=== PATIENT | male | born 1955 | race Caucasian/White ===

== ENCOUNTER → 2024-01-28 | Outpatient (CLI) | payer MEDICARE, BC, SELFPAY ==
[2024-01-28 11:19] LABS: Anion Gap 4 (5-15); BUN 26 mg/dL (7-18); BUN/Creat Ratio 23.9 RATIO (10-20); Calcium,Total 9.7 mg/dL (8.5-10.1); Chloride 108 mmol/L (98-107); Creatinine, Serum 1.09 mg/dL (0.70-1.30); EST Glomerular Filtration Rate 72 mL/min (>60); Est Glom Filt Rate - Afr Amer 87 mL/min (>60); Glucose 101 mg/dL (74-106); Potassium 4.1 mmol/L (3.5-5.1); Sodium Level 139 mmol/L (136-145)
[2024-01-28 11:28] LABS: BNP,B-Type NATRIURETIC PEPTIDE 611.4 pg/mL (0-100)
== END | disposition home or self-care (01) ==
PROVIDERS: PCP Internal Medicine; Referring Provider Internal Medicine Cardiovascular Disease; Visit Provider Internal Medicine Cardiovascular Disease
DX: I50.9 Heart failure, unspecified (principal)
CPT/HCPCS: 36415; 80048; 83880

== ENCOUNTER → 2024-03-29 | Outpatient (CLI) | payer MEDICARE, BC, SELFPAY ==
--- NOTE | 2024-03-29 08:48 | ECHOCS_ITS ---
Reason For Study: CHF Procedure This was a 2D Doppler, Color Flow transthoracic echocardiogram. Contrast injection was performed. Exam performed in department. Left Ventricle Normal LV size. The left ventricular ejection fraction is 40 %. There is mild global hypokinesis of the left ventricle. Right Ventricle Normal RV size. Mild global right ventricular systolic dysfunction. Mitral Valve There is mild mitral annular calcification. Tricuspid Valve Normal tricuspid valve. Mild (1+) tricuspid valve insufficiency. Pulmonary artery systolic pressure is 42 mmHg. Aortic Valve Trisinus/trileaflet aortic valve. Mild focal aortic valve calcification. Mild (1+) aortic valve insufficiency. Pulmonic Valve Normal pulmonic valve. Great Vessels Mildly dilated aortic root. The pulmonary artery is normal size. Normal inferior vena cava. Pericardium/Pleural No pericardial effusion. Medication 22 gauge I.V. with prn adaptor inserted into right arm. Diluted definity 2.5ml given slow IV push to enhance endocardial definition. MMode/2D Measurements & Calculations LVIDd: 6.3 cm IVSd: 1.3 cm Ao root diam: 4.1 cm LVIDs: 4.9 cm LVPWd: 1.1 cm RVDd: 4.1 cm FS: 21.2 % LAV(MOD-bp): 84.9 ml LVAd ap4: 54.8 cm2 SV(MOD-sp4): 99.6 ml LAV(MOD-bp) Indexed: 35.9 ml/m2 LVLd ap4: 10.0 cm SI(MOD-sp4): 42.1 ml/m2 LAV(MOD-sp2): 93.8 ml EDV(MOD-sp4): 247.2 ml LAV(MOD-sp4): 77.1 ml EDV(sp4-el): 255.4 ml LVAs ap4: 40.0 cm2 LVLs ap4: 8.9 cm ESV(MOD-sp4): 147.6 ml ESV(sp4-el): 152.7 ml EF(MOD-sp4): 40.3 % EF(sp4-el): 40.2 % SV(sp4-el): 102.7 ml LA A4 area: 23.7 cm2 LA dimension(2D): 5.0 cm RA A4 area: 23.1 cm2 TAPSE: 1.9 cm Time Measurements MV dec time: 0.36 sec Doppler Measurements & Calculations MV E max santiago: 65.2 cm/sec Lat Peak E' Santiago: 8.3 cm/sec Med Peak E' Santiago: 7.6 cm/sec MV A max santiago: 94.2 cm/sec E/E' lat: 7.8 E/E' med: 8.5 MV E/A: 0.69 MV V2 max: 119.4 cm/sec MV P1/2t max santiago: 84.9 cm/sec Ao V2 max: 134.7 cm/sec MV max P.7 mmHg MV P1/2t: 138.7 msec Ao max P.3 mmHg MV V2 mean: 63.4 cm/sec Ao V2 mean: 95.5 cm/sec MV mean P.9 mmHg MV dec slope: 179.3 cm/sec2 Ao mean P.1 mmHg MV V2 VTI: 32.6 cm MVA(P1/2t): 1.6 cm2 Ao V2 VTI: 31.7 cm AV (velocity ratio): 0.77 AI max santiago: 391.6 cm/sec LV V1 max: 112.6 cm/sec MR max santiago: 376.7 cm/sec AI max P.4 mmHg LV V1 max P.1 mmHg MR max P.8 mmHg LV V1 mean P.0 mmHg AI dec slope: 225.1 cm/sec2 LV V1 mean: 82.9 cm/sec AI P1/2t: 509.4 msec LV V1 VTI: 24.3 cm PA V2 max: 91.8 cm/sec TR max santiago: 310.8 cm/sec PI dec slope: 184.6 cm/sec2 TR max P.6 mmHg ECHO/Echo Complete W/ Contrast Interpretation Summary Normal LV size. The left ventricular ejection fraction is 40 %. There is mild global hypokinesis of the left ventricle. Mildly dilated aortic root. Pulmonary artery systolic pressure is 42 mmHg. Contrast injection was performed. Ordering Physician: Frederick Sánchez Referring Physician: Frederick Sánchez Performed By: Brodwolf, Asif, RCS
== END | disposition home or self-care (01) ==
PROVIDERS: PCP Internal Medicine; Referring Provider Internal Medicine Cardiovascular Disease; Visit Provider Internal Medicine Cardiovascular Disease
DX: R94.31 Abnormal electrocardiogram [ECG] [EKG] (principal)
CPT/HCPCS: 93306; Q9957; A4216; C8929